=== PATIENT | female | born 1970 | race Two or more races ===

== ENCOUNTER 2023-10-07 10:09 | Emergency (ER) | payer MEDICAID ==
[~2023-10-07] VITALS: Ht 152.4 cm; Wt 89.3 kg
[2023-10-07 11:00] VITALS: BP 130/90; PULSE 91; RESP 18; TEMP 98; O2SAT 97
[2023-10-07] MEDS ORDERED: DexAMETHasone SOD PHOS 10MG/1ML VIAL INJ PO ONE (11:30)
[2023-10-07] MEDS ORDERED: cefTRIAXone SOD 1,000 MG VL IM ONE (11:30)
[2023-10-07 11:41] LABS: COVID19 ANTIGEN SOFIA FIA NEGATIVE (NEGATIVE)
[2023-10-07] MEDS ORDERED: PROM1SOL4 PO ×3 (11:48→12:04)
[2023-10-07] MEDS ORDERED: IBUP1TAB5 PO ×3 (11:48→12:04)
[2023-10-07] MEDS ORDERED: DOXY-286 PO ×3 (11:48→12:04)
[2023-10-07] MEDS ORDERED: LIDOCAINE 1% HCL (LOCAL ANESTH.) INJ 20ML MDV IJ ONE (12:00)
== END 2023-10-07 12:23 | disposition home or self-care (01) ==
LOC: ER 10:09
DX: J40 Bronchitis, not specified as acute or chronic (principal); J06.9 Acute upper respiratory infection, unspecified; Z20.822 Contact with and (suspected) exposure to COVID-19
CPT/HCPCS: 36415; 71046; 87426; 96372; 99284; J0696; J1100; J2001

== ENCOUNTER 2025-04-09 00:45 | Emergency (ER) | payer MEDICAID ==
[~2025-04-09] VITALS: Ht 154.9 cm; Wt 87.0 kg
[~2025-04-09 00:45] MED LIST: DOXY-286 PO; IBUP1TAB5 PO; PROM1SOL4 PO
[2025-04-09] MEDS ORDERED: IBUP-1456 PO (01:35)
--- NOTE | 2025-04-09 01:36 | ED.PDOC ---
Musculoskeletal HPI Comments 54-year-old female presents to ER with complaints of left hip pain x3 days. Patient reports she started experiencing left hip pain with intermittent numbness to left hip three days ago. Patient denies any known injury but reports that she recently started walking more for exercise 2 weeks ago. She rates her current pain a 9/10 to left hip with radiation towards the left knee. Patient presents to ER ambulatory with use of cane, in mild distress and denies use of medications for current symptoms. Denies fever, body aches, chills, calf pain or any further symptoms/complaints Chief Complaint: Lower Extremity Time Seen by MD: 00:49 Primary Care Provider: UNKNOWN Reviewed Notes: Nurses Notes, Medications, Allergies Allergies: Coded Allergies: Diphenhydramine (Verified Allergy, Unknown, 10/07/23) Home Meds Active Scripts Ibuprofen (Ibuprofen) 800 Mg Tab, 1 TAB PO TID PRN, #30 TAB 0 Refills Prov:YANELY GILMORE 04/09/25 Ibuprofen Micronized (Ibuprofen) 600 Mg Tab, 600 MG PO TIDWMEALS for 10 Days, #30 TAB 0 Refills Prov:YAMEL FERRER NP 10/07/23 Doxycycline Hyclate (DOXYCYCLINE HYCLATE) 100 Mg Tab, 100 MG PO BID for 7 Days, #14 TAB 0 Refills Prov:YAMEL FERRER NP 10/07/23 Promethazine-Dm (Promethazine Dm 6.25-15 mg/5Ml) 1 Sarah Sarah, 5 ML PO TID for 10 Days, #150 ML 0 Refills Prov:YAMEL FERRER NP 10/07/23 Information Source: Patient Mode of Arrival: Ambulatory Past Medical History PAST MEDICAL HISTORY: Denies Surgical History: Denies all surgeries BOIL[employer] RO[employer] 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 History Family History Family History: Unknown Social History Smoker: Non-Smoker Alcohol: Denies ETOH Use Drugs: Denies Drug Use Lives In: Home Constitutional: denies: chills, diaphoresis, fatigue, fever, malaise, sweats, weakness, others EENTM: denies: blurred vision, double vision, ear bleeding, ear discharge, ear drainage, ear pain, ear ringing, eye pain, eye redness, hearing loss, mouth pain, mouth swelling, nasal discharge, nose bleeding, nose congestion, nose pain, photophobia, tearing, throat pain, throat swelling, voice changes, others Respiratory: denies: cough, hemoptysis, orthopnea, SOB at rest, shortness of breath, SOB with excertion, stridor, wheezing, others Cardiovascular: denies: chest pain, dizzy spells, diaphoresis, Dyspnea on exertion, edema, irregular heart beat, left arm pain, lightheadedness, palpitat ions, PND, syncope, others Gastrointestinal: denies: abdomen distended, abdominal pain, blood streaked bow els, constipated, diarrhea, dysphagia, difficulty swallowing, hematemesis, melena, nausea, poor appetite, poor fluid intake, rectal bleeding, rectal pain, vomiting, others Genitourinary: denies: abnormal vagina bleeding, burning, dyspareunia, dysuria, flank pain, frequency, hematuria, incontinence, pain, , vagina discharge, urgency, others Neurological: reports: others (As stated in HPI) Musculoskeletal: reports: others (As stated in HPI) Integumetry: denies: bruises, change in color, change in hair/nails, dryness, laceration, lesions, lumps, rash, wounds, others Allergic/Immunocompromised: denies: Difficulty Healing, Frequent Infections, Hives, Itching, others Hematologic/Lymphatic: denies: anemia, blood clots, easy bleeding, easy bruising, swollen glands, others Endocrine: denies: excessive hunger, excessive sweating, excessive thirst, excessive urination, flushing, intolerance to cold, intolerance to heat, unexplained weight gain, unexplained weight loss, others Psychiatric: denies: anxiety, bipolar disorder, depression, hopeless, panic disorder, schizophrenia, sleepless, suicidal, others Physical Exam General Appearance: Mild Distress (Due to left hip pain), Obese HEENT: PERRL/EOMI Neck: Full Range of Motion, Non-Tender, Normal Respiratory: Chest Non-Tender, Lungs Clear, No Accessory Muscle Use, No Respiratory Distress, Normal Breath Sounds Cardiovascular: No Murmur, No Gallop, Regular Rate/Rhythm Breast Exam: Deferred Gastrointestinal: NOT DONE Genitalia: Deferred Pelvic: Deferred Rectal: Deferred Extremities: No calf tenderness, Normal capillary refill, Normal range of motion Musculoskeletal : Extremity Location: Hip (TTP to left hip noted. No skin changes noted. No other TTP to left lower extremity appreciated. Gait slowed with use of cane due to pain localized to left hip.) Neurologic: Alert, No Motor Deficits, No Sensory Deficits Cerebellar Function: Normal Reflexes: Normal Skin: Dry, Normal Color, Warm Peripheral Pulses: 2+ femoral (R), 2+ femoral (L), 2+ dorsalis pedis (R), 2+ dorsalis pedis (L), 2+ Radial (R), 2+ Radial (L), 2+ Brachial (R), 2+ Brachial (L) Lymphatic: No Adenopathy Was a procedure done? Was a procedure done?: No Sedation Sedation?: No Differential Diagnosis EXT Differential Diagnosis: Fracture, Dislocation, Septic, Neurovascular injury X-Ray, Labs, Meds, VS Vital Signs Date Time Temp Pulse Resp B/P (MAP) Pulse Ox O2 Delivery O2 Flow Rate FiO2 04/09/25 02:00 98.0 78 17 135/90 (105) 99 98.0 04/09/25 02:00 78 17 99 Room Air 04/09/25 00:52 98.0 78 17 135/90 (105) 99 98.0 Current Medications Medications (Trade) Dose Ordered Sig/Ileana Route Start Time Stop Time Status Last Admin Ketorolac Tromethamine (Toradol Injection) 60 mg ONCE ONCE IM 04/09/25 01:30 04/09/25 01:31 DC 04/09/25 01:53 PATIENT: MELANI SAUCEDO LACCT: [id number]: [id number] : 1970 LOC: ER ROOM / BED: / AGE / SEX: 54 / F ADM STATUS: REG ER SERVICE [id number] ORDERING PHYSICIAN: YANELY GILMORE PROCEDURE(s): LHIP - L HIP COMPLETE XRAY REASON: left hip pain ORDER NUMBER(s): [id number], ACCESSION NUMBER(s): [id number] XY L HIP COMPLETE XRAY, INDICATION: left hip pain TECHNICAL DATA: Frontal and frog lateral views were obtained of the left hip.] COMPARISON: None FINDINGS: The left hip is normally located. The left hip joint is normally maintained with no marginal osteophytes. No left hip fracture is identified. The left sacroiliac joint appears normal. IMPRESSION: Normal radiographs of the left hip. ATED BY: ADAM FREITAS DO DICTATED DATE/TIME: 04/09/25157 SIGNED BY: ADAM FREITAS DO SIGNED DATE/TIME: 04/09/25157 CC: Left hip x-ray reviewed Toradol 60 mg IM ordered Patient neurovascularly intact and reported improvement in symptoms prior to discharge Advised on rest/no strenuous activity and alternate ice on/off as needed for pain Advised on continued use of cane at all times Advised to follow up with PCP and orthopedics in 1-2 days Patient verbalized understanding and agreeable with current plan of care Advised to return to ER immediately if symptoms worsen Images Reviewed?: Images reviewed and evaluated by me Time of 1ST Reevaluation: 01:30 Reevaluation 1ST: N/A Patient Education/Counseling: Diagnosis, Treatment, Prognosis, Need For Follow Up Family Education/Counseling: No Family Present Departure 1 Departure Time of Disposition: 02:02 Impression: Primary Impression: Strain of left hip Qualified Codes: S76.012A - Strain of muscle, fascia and tendon of left hip, initial encounter Disposition: HOME / SELF CARE / HOMELESS Condition: Stable e-Prescriptions Ibuprofen (Ibuprofen) 800 Mg Tab 1 TAB PO TID PRN, #30 TAB 0 Refills Prov: YANELY GILMORE 04/09/25 Discharged With: Friend Critical Care Note Critical Care Time?: No Stability Stability form required: No Heart Score Heart Score: Heart Score Response (Comments) Value History N/A 0 EKG N/A 0 Age N/A 0 Risk Factors N/A 0 Troponin N/A 0 Total 0 YANELY GILMORE Apr 09, 2025 01:36
[2025-04-09] MEDS: KETOROLAC TROMETH 60MG/2ML VIAL IM ONE (01:53)
[2025-04-09 02:00] VITALS: BP 135/90; PULSE 78; RESP 17; TEMP 98; O2SAT 99
--- NOTE | 2025-04-09 02:01 | DVH ---
XY L HIP COMPLETE XRAY, INDICATION: left hip pain TECHNICAL DATA: Frontal and frog lateral views were obtained of the left hip.] COMPARISON: None FINDINGS: The left hip is normally located. The left hip joint is normally maintained with no marginal osteophy fabrice. No left hip fracture is identified. The left sacroiliac joint appears normal. IMPRESSION: Normal radiographs of the left hip.
== END 2025-04-09 02:29 | disposition home or self-care (01) ==
LOC: ER 00:45
DX: S76.012A Strain of muscle, fascia and tendon of left hip, initial encounter (principal); Z79.899 Other long term (current) drug therapy; Z88.1 Allergy status to other antibiotic agents; X58.XXXA Exposure to other specified factors, initial encounter; Y93.01 Activity, walking, marching and hiking; Y92.89 Other specified places as the place of occurrence of the external cause; Y99.8 Other external cause status
CPT/HCPCS: 73502; 96372; 99283; J1885